=== PATIENT | male | born 1950 | race Two or more races ===

== ENCOUNTER 2016-08-28 11:50 | Inpatient (IN) | payer MEDICARE, MEDICAID ==
[~2016-08-28] VITALS: Ht 177.8 cm; Wt 80.7 kg
[~2016-08-28 11:50] MED LIST: ALPR0.5T PO; ASPI-231 PO; ATOR20TA PO; B-CO-5 OR; CLOP75TA28 PO; KEP500T PO; NITR0.4S29 SL; OMEP20CA74 PO; SEVE800T8 PO; SIMV-13 PO
[2016-08-28 12:38] LABS: Basophils # (auto) 0 uL; Basophils % (auto) 0.5 % (0.0-2.0); CONDITION Y; Eosinophils # (auto) 0.5 uL; Eosinophils % (auto) 7.8 % (0.0-7.0); Hematocrit 32.4 % (41.0-53.0); Hemoglobin 10.5 g/dL (13.5-17.5); Lymphocytes # (auto) 1.1 uL; Lymphocytes % (auto) 18.1 % (10.0-50.0); Mean Corpuscular Hemoglobin 28.8 pg (28.0-32.0); Mean Corpuscular Hgb Conc. 32.5 g/dL (32.0-36.0); Mean Corpuscular Volume 88.5 fL (80.0-100.0); Mean Platelet Volume 7.3 fL (7.4-10.4); Monocytes # (auto) 0.5 uL; Monocytes % (auto) 7.7 % (0.0-12.0); Neutrophils # (auto) 4.2 uL; Neutrophils % (auto) 65.9 % (37.0-80.0); Platelet Count (auto) 278 10^3/uL (140-450); Red Cell Distribution Width 16.6 % (11.6-16.0); White Blood Cell 6.3 10^3/uL (4.4-10.8)
[2016-08-28 12:46] LABS: INR 1.13 (0.9-1.15); Partial Thromboplastin Time 29.4 sec (22.64-33.71); Prothrombin Time 12.3 sec (9.37-12.3)
[2016-08-28 12:49] LABS: Albumin 2.7 g/dL (3.4-5.0); BUN/Creatinine Ratio 5.2; Bilirubin, Total 0.5 mg/dL (0.2-1.0); Calcium 7.9 mg/dL (8.5-10.1); Potassium 4.5 mmol/L (3.5-5.1); Total Protein 6.7 g/dL (6.4-8.2)
[2016-08-28 13:30] LABS: B-Type Natriuretic Peptide 4632.29 pg/mL (0-100)
[2016-08-28 13:31] LABS: Temperature: 23.1 C (20.0-25.0)
[2016-08-28] MEDS ORDERED: ENOXAPARIN SOD 80 MG/0.8ML SYRINGE SC ONE (15:00)
[2016-08-28] MEDS ORDERED: ALPRAZolam 0.25 MG TAB PO PRN (17:30)
[2016-08-28] MEDS ORDERED: DEXTROSE (50%) 50ML SYRG IV PRN (17:30)
[2016-08-28] MEDS ORDERED: LORazepam 2MG/ML-1ML VIAL IV PRN (17:30)
[2016-08-28] MEDS ORDERED: ASPirin 81 mg TAB PO ONE (18:30)
[2016-08-28] MEDS: SEVELAMER 800 MG TAB PO SCH (19:30)
[2016-08-28] MEDS: ACCU-CHEK COMFORT CURVE STRIP VI SCH (21:48)
[2016-08-28] MEDS: LEVETIRACETAM 500 MG TAB PO SCH (21:57)
[2016-08-28] MEDS: ATORVASTATIN 20 MG TAB PO SCH (21:57)
[2016-08-28] MEDS: InsuLIN REG 1unit/0.01ml Soln (100units/ml) SC SCH (21:59)
[2016-08-29] VITALS (7 sets, daily range): BP systolic 125–163; BP diastolic 48–67
[2016-08-29] MEDS: InsuLIN REG 1unit/0.01ml Soln (100units/ml) SC SCH ×4 (07:00→22:00)
[2016-08-29] MEDS: ACCU-CHEK COMFORT CURVE STRIP VI SCH ×4 (07:08→22:11)
[2016-08-29] MEDS: B-COMPLEX W/ C & FOLIC ACID(NEPHROVITE TAB) PO SCH (08:24)
[2016-08-29] MEDS: CLOPIDOGREL BISULFATE 75 MG TAB PO SCH (08:24)
[2016-08-29] MEDS: FAMOTIDINE 20 MG TAB PO SCH (08:24)
[2016-08-29] MEDS: LEVETIRACETAM 500 MG TAB PO SCH ×2 (08:24→22:11)
[2016-08-29] MEDS: SEVELAMER 800 MG TAB PO SCH ×3 (08:25→18:15)
[2016-08-29] MEDS: ASPirin 81 mg TAB PO SCH (08:25)
[2016-08-29 09:28] LABS: Basophils # (auto) 0.1 uL; Basophils % (auto) 0.9 % (0.0-2.0); CONDITION Y; DEFINITIVE SEE PRINTOUT; Eosinophils # (auto) 0.8 uL; Eosinophils % (auto) 14.3 % (0.0-7.0); Hematocrit 33.4 % (41.0-53.0); Hemoglobin 10.8 g/dL (13.5-17.5); Lymphocytes # (auto) 1.1 uL; Lymphocytes % (auto) 17.9 % (10.0-50.0); Mean Corpuscular Hgb Conc. 32.3 g/dL (32.0-36.0); Mean Corpuscular Volume 89.9 fL (80.0-100.0); Mean Platelet Volume 7.4 fL (7.4-10.4); Monocytes # (auto) 0.6 uL; Monocytes % (auto) 9.5 % (0.0-12.0); Neutrophils # (auto) 3.4 uL; Neutrophils % (auto) 57.4 % (37.0-80.0); Platelet Count (auto) 284 10^3/uL (140-450); Red Cell Distribution Width 16.3 % (11.6-16.0); White Blood Cell 5.9 10^3/uL (4.4-10.8)
[2016-08-29 09:53] LABS: Calcium 8.2 mg/dL (8.5-10.1); Potassium 4.6 mmol/L (3.5-5.1)
[2016-08-29 09:57] LABS: BUN/Creatinine Ratio 5.4
[2016-08-29] MEDS ORDERED: SODIUM CHL 0.9% 1000 ML BAG XX ONE (12:15)
[2016-08-29] MEDS ORDERED: ACETAMINOPHEN 325 MG TAB PO PRN (14:15)
[2016-08-29] MEDS ORDERED: HYDROcodone-ACET 5/325MG TAB PO PRN (14:15)
[2016-08-29] MEDS: Boost Glucose Control 8 Ounces PO SCH ×2 (18:15→22:11)
[2016-08-29] MEDS: ATORVASTATIN 20 MG TAB PO SCH (22:10)
[2016-08-30 05:44] VITALS: BP 110/45
[2016-08-30 06:00] LABS: CONDITION Y; DEFINITIVE SEE PRINTOUT; Hematocrit 31.1 % (41.0-53.0); Hemoglobin 9.9 g/dL (13.5-17.5); Mean Corpuscular Hemoglobin 28.9 pg (28.0-32.0); Mean Corpuscular Volume 90.5 fL (80.0-100.0); Mean Platelet Volume 7.5 fL (7.4-10.4); Platelet Count (auto) 217 10^3/uL (140-450); Red Cell Distribution Width 16.4 % (11.6-16.0); White Blood Cell 5.7 10^3/uL (4.4-10.8)
[2016-08-30 06:15] LABS: Potassium 4.4 mmol/L (3.5-5.1)
[2016-08-30] MEDS: ACCU-CHEK COMFORT CURVE STRIP VI SCH ×2 (06:16→11:30)
[2016-08-30] MEDS: InsuLIN REG 1unit/0.01ml Soln (100units/ml) SC SCH ×2 (06:16→11:30)
[2016-08-30] MEDS: Boost Glucose Control 8 Ounces PO SCH ×2 (06:16→12:00)
[2016-08-30 06:22] LABS: Albumin 2.9 g/dL (3.4-5.0); BUN/Creatinine Ratio 4.8
[2016-08-30 06:27] LABS: Bilirubin, Total 0.4 mg/dL (0.2-1.0); Total Protein 6.8 g/dL (6.4-8.2)
[2016-08-30 06:47] LABS: Metamyelocytes % 0; Myelocytes % 0; Promyelocytes % 0; Reactive Lymphocytes 0
[2016-08-30 07:03] LABS: Platelet Estimate Adequate
[2016-08-30 08:00] VITALS: BP 104/54
[2016-08-30] MEDS: LEVETIRACETAM 500 MG TAB PO SCH (08:46)
[2016-08-30] MEDS: SEVELAMER 800 MG TAB PO SCH ×2 (08:46→11:48)
[2016-08-30] MEDS: ASPirin 81 mg TAB PO SCH (08:47)
[2016-08-30] MEDS: CLOPIDOGREL BISULFATE 75 MG TAB PO SCH (08:47)
[2016-08-30] MEDS: FAMOTIDINE 20 MG TAB PO SCH (08:47)
[2016-08-30] MEDS: B-COMPLEX W/ C & FOLIC ACID(NEPHROVITE TAB) PO SCH (08:47)
[2016-08-30 12:15] VITALS: BP 143/51
[2016-08-30 15:07] VITALS: BP 104/54
== END 2016-08-30 17:45 | disposition home or self-care (01) | DRG 100 ==
LOC: ER 11:50 → EDBD 11:50 → OVERFLOW 11:51 → EAST 08-29 03:00
PROVIDERS: ADMIT Internal Medicine; ATTEND Internal Medicine
PROC: 5A1D00Z (ICD-10-PCS; principal; 2016-08-29)
DX: G40.909 Epilepsy, unspecified, not intractable, without status epilepticus (principal); G93.41 Metabolic encephalopathy; E43 Unspecified severe protein-calorie malnutrition; N18.6 End stage renal disease; I13.2 Hypertensive heart and chronic kidney disease with heart failure and with stage 5 chronic kidney disease, or end stage renal disease; J98.11 Atelectasis; D64.9 Anemia, unspecified; E11.21 Type 2 diabetes mellitus with diabetic nephropathy; E11.22 Type 2 diabetes mellitus with diabetic chronic kidney disease; E11.319 Type 2 diabetes mellitus with unspecified diabetic retinopathy without macular edema; E11.42 Type 2 diabetes mellitus with diabetic polyneuropathy; E78.5 Hyperlipidemia, unspecified; I25.10 Atherosclerotic heart disease of native coronary artery without angina pectoris; I73.9 Peripheral vascular disease, unspecified; K21.9 Gastro-esophageal reflux disease without esophagitis; Z79.02 Long term (current) use of antithrombotics/antiplatelets; Z68.25 Body mass index [BMI] 25.0-25.9, adult; I25.2 Old myocardial infarction; Z79.82 Long term (current) use of aspirin; Z79.899 Other long term (current) drug therapy; Z82.49 Family history of ischemic heart disease and other diseases of the circulatory system; Z83.3 Family history of diabetes mellitus; Z86.73 Personal history of transient ischemic attack (TIA), and cerebral infarction without residual deficits; Z99.2 Dependence on renal dialysis; Z89.442 Acquired absence of left ankle
CPT/HCPCS: 36415; 70450; 71010; 80048; 80053; 82140; 82962; 83036; 83880; 84443; 84484; 85007; 85025; 85027; 85610; 85730; 87081; 90935; 93005; 96372; J1642; J1815